=== PATIENT | male | born 1935 | race Caucasian/White ===

== ENCOUNTER → 2016-05-06 | Outpatient (CLI) | payer MEDICARE, OTHER ==
--- OUTSIDE RECORDS SUMMARY | 2016-05-06 10:59 | XMS REPORT | Continuity of Care Document ---
Author Author [facility] Organization [facility] Address Unknown Phone Unavailable Allergies Medications Problems Date Dx Coded Attending Type Code Diagnosis Diagnosed By 04/18/2014 Ot 285.9 04/18/2014 Ot 401.9 04/18/2014 Ot 714.0 04/18/2014 Ot V10.05 04/18/2014 Ot V12.51 04/18/2014 Ot V45.72 04/18/2014 Ot V67.2 04/18/2014 Ot 401.9 04/18/2014 Ot 714.0 04/18/2014 Ot V10.05 04/18/2014 Ot V12.51 04/18/2014 Ot V45.72 04/18/2014 Ot V58.69 04/18/2014 Ot V67.2 04/18/2014 Ot 285.9 04/18/2014 Ot 401.9 04/18/2014 Ot 714.0 04/18/2014 Ot V10.05 04/18/2014 Ot V12.51 04/18/2014 Ot V45.77 04/18/2014 Ot V58.69 04/18/2014 Ot V67.2 04/18/2014 Ot V87.41 04/18/2014 Ot 285.9 04/18/2014 Ot 401.9 04/18/2014 Ot 714.0 04/18/2014 Ot V10.05 04/18/2014 Ot V12.51 04/18/2014 Ot V45.77 04/18/2014 Ot V58.69 04/18/2014 Ot V67.2 04/18/2014 Ot V87.41 04/18/2014 Ot 285.9 04/18/2014 Ot 401.9 04/18/2014 Ot 714.0 04/18/2014 Ot V10.05 04/18/2014 Ot V12.51 04/18/2014 Ot V45.77 04/18/2014 Ot V58.69 04/18/2014 Ot V67.2 04/18/2014 Ot V87.41 04/18/2014 Ot 285.9 04/18/2014 Ot 401.9 04/18/2014 Ot 709.9 04/18/2014 Ot 714.0 04/18/2014 Ot V10.05 04/18/2014 Ot V12.51 04/18/2014 Ot V45.77 04/18/2014 Ot V58.69 04/18/2014 Ot V67.2 04/18/2014 Ot V87.41 04/18/2014 Ot 285.9 04/18/2014 Ot 401.9 04/18/2014 Ot 714.0 04/18/2014 Ot V10.05 04/18/2014 Ot V12.51 04/18/2014 Ot V45.77 04/18/2014 Ot V58.69 04/18/2014 Ot V67.2 04/18/2014 Ot V87.41 04/18/2014 Ot 285.9 04/18/2014 Ot 401.9 04/18/2014 Ot 714.0 04/18/2014 Ot V10.05 04/18/2014 Ot V12.51 04/18/2014 Ot V45.77 04/18/2014 Ot V58.69 04/18/2014 Ot V67.2 04/18/2014 Ot V87.41 04/18/2014 Ot 285.9 04/18/2014 Ot 401.9 04/18/2014 Ot 714.0 04/18/2014 Ot V10.05 04/18/2014 Ot V12.51 04/18/2014 Ot V45.77 04/18/2014 Ot V58.69 04/18/2014 Ot V67.2 04/18/2014 Ot V87.41 04/18/2014 Ot 401.9 04/18/2014 Ot 714.0 04/18/2014 Ot V10.05 04/18/2014 Ot V12.51 04/18/2014 Ot V58.69 04/18/2014 Ot V67.2 04/18/2014 Ot 285.9 04/18/2014 Ot 401.9 04/18/2014 Ot 714.0 04/18/2014 Ot V10.05 04/18/2014 Ot V12.51 04/18/2014 Ot V45.77 04/18/2014 Ot V58.69 04/18/2014 Ot V67.2 04/18/2014 Ot V87.41 05/17/2014 Ot 244.9 05/17/2014 Ot 285.9 05/17/2014 Ot 401.9 05/17/2014 Ot 714.0 05/17/2014 Ot V10.05 05/17/2014 Ot V12.51 05/17/2014 Ot V45.77 05/17/2014 Ot V58.69 05/17/2014 Ot V67.2 05/17/2014 Ot V87.41 05/23/2014 Ot 244.9 05/23/2014 Ot 285.9 05/23/2014 Ot 401.9 05/23/2014 Ot 714.0 05/23/2014 Ot V10.05 05/23/2014 Ot V12.51 05/23/2014 Ot V45.77 05/23/2014 Ot V58.69 05/23/2014 Ot V67.2 05/23/2014 Ot V87.41 06/06/2014 Ot 244.9 06/06/2014 Ot 285.9 06/06/2014 Ot 401.9 06/06/2014 Ot 714.0 06/06/2014 Ot V10.05 06/06/2014 Ot V12.51 06/06/2014 Ot V45.77 06/06/2014 Ot V58.69 06/06/2014 Ot V67.2 06/06/2014 Ot V87.41 11/22/2014 TORI HERNANDEZ, ESTRADADO Ot 244.9 11/22/2014 TORI HERNANDEZ, ESTRADADO Ot 285.9 11/22/2014 TORI HERNANDEZ, ESTRADADO Ot 401.9 11/22/2014 TORI HERNANDEZ, ESTRADADO Ot 714.0 11/22/2014 TORI HERNANDEZ, ESTRADA-DO Ot V10.05 11/22/2014 TORI HERNANDEZ, ESTRADA-DO Ot V12.51 11/22/2014 TORI HERNANDEZ, ESTRADADO Ot V58.69 11/22/2014 TORI HERNANDEZ, ESTRADA-DO Ot V67.2 05/28/2015 TORI HERNANDEZ, ESTRADA-DO Ot I10 05/28/2015 [facility]/28[facility] Z[facility] 05/28/2015 TORI HERNANDEZ, [facility] Ot Z85.038 05/28/2015 LIN VALLE MD, Ot Z86.718 11/07/2015 LIN VALLE MD, Ot C18.7 MALIGNANT NEOPLASM OF SIGMOID COLON 11/28/2015 LIN VALLE MD, Ot C18.7 MALIGNANT NEOPLASM OF SIGMOID COLON Procedures Results Encounters ACCT No. Visit Date/Time Discharge Status Pt. Type Provider Facility Loc./Unit Complaint [id number] 09/30/2014 22:15:19 09/30/2014 23: 59:59 [facility] Outpatient Samir Alvarado [id number] 09/30/2014 22:09:41 09/30/2014 23: 59:59 Samir Mccain
== END ==
LOC: PAR 10:55
PROVIDERS: ATTEND Internal Medicine Hematology & Oncology
DX: C18.7 Malignant neoplasm of sigmoid colon (principal)
CPT/HCPCS: 99213

== ENCOUNTER 2016-09-02 11:27 | Outpatient (RCR) | payer MEDICARE, OTHER ==
[2016-06-24 16:17] LABS: BASOPHILS % (AUTO) 0 % (0-10); EOSINOPHILS # (AUTO) 0.1 10^3/uL (0.0-0.3); EOSINOPHILS % (AUTO) 3 % (0-10); LYMPHOCYTES # (AUTO) 1.8 X 10^3 (1.0-4.0); LYMPHOCYTES % (AUTO) 36 % (12-44); MEAN CORPUSCULAR HGB CONC 33 G/DL (32-36); MEAN CORPUSCULAR VOLUME 96 FL (80-99); MEAN PLATELET VOLUME 9.8 FL (7.4-10.4); MONOCYTES # (AUTO) 0.6 X 10^3 (0.0-1.0); MONOCYTES % (AUTO) 11 % (0-12); NEUTROPHILS # (AUTO) 2.5 X 10^3 (1.8-7.8); NEUTROPHILS % (AUTO) 50 % (42-75); PLATELET COUNT 235 10^3/uL (130-400); RED BLOOD COUNT 3.94 10^6/uL (4.35-5.85); RED CELL DISTRIBUTION WIDTH 13.2 % (10.0-14.5); RETICULOCYTE % 1.14 % (0.50-2.40); WHITE BLOOD COUNT 5.1 10^3/uL (4.3-11.0)
[2016-06-24 16:22] LABS: MEAN CORPUSCULAR HEMOGLOBIN 31 PG (25-34)
[2016-06-24 17:08] LABS: BILIRUBIN,TOTAL 0.9 MG/DL (0.1-1.0); CALCIUM 8.9 MG/DL (8.5-10.1); CREATININE SERUM 1.54 MG/DL (0.60-1.30); POTASSIUM 4.4 MMOL/L (3.6-5.0); TOTAL PROTEIN 6.9 G/DL (6.4-8.2)
[2016-09-02 15:57] LABS: BASOPHILS % (AUTO) 0 % (0-10); EOSINOPHILS # (AUTO) 0.2 10^3/uL (0.0-0.3); EOSINOPHILS % (AUTO) 3 % (0-10); LYMPHOCYTES # (AUTO) 1.7 X 10^3 (1.0-4.0); LYMPHOCYTES % (AUTO) 34 % (12-44); MEAN CORPUSCULAR HEMOGLOBIN 32 PG (25-34); MEAN CORPUSCULAR HGB CONC 33 G/DL (32-36); MEAN CORPUSCULAR VOLUME 97 FL (80-99); MEAN PLATELET VOLUME 9.8 FL (7.4-10.4); MONOCYTES # (AUTO) 0.7 X 10^3 (0.0-1.0); MONOCYTES % (AUTO) 15 % (0-12); NEUTROPHILS # (AUTO) 2.4 X 10^3 (1.8-7.8); NEUTROPHILS % (AUTO) 48 % (42-75); PLATELET COUNT 244 10^3/uL (130-400); RED CELL DISTRIBUTION WIDTH 13.2 % (10.0-14.5)
[2016-09-02 16:55] LABS: ALBUMIN 3.9 GM/DL (3.2-4.5); BILIRUBIN,TOTAL 0.8 MG/DL (0.1-1.0); CALCIUM 8.6 MG/DL (8.5-10.1); CREATININE SERUM 1.43 MG/DL (0.60-1.30); POTASSIUM 4.5 MMOL/L (3.6-5.0); TOTAL PROTEIN 7.1 GM/DL (6.4-8.2)
== END 2016-09-22 | disposition home or self-care (01) ==
LOC: PAR 11:27
PROVIDERS: ATTEND Internal Medicine Hematology & Oncology
DX: Z08 Encounter for follow-up examination after completed treatment for malignant neoplasm (principal); Z85.038 Personal history of other malignant neoplasm of large intestine; I10 Essential (primary) hypertension; E03.9 Hypothyroidism, unspecified; M06.9 Rheumatoid arthritis, unspecified; Z86.718 Personal history of other venous thrombosis and embolism; Z79.899 Other long term (current) drug therapy
CPT/HCPCS: 36415; 80053; 82378; 82728; 83540; 85025; 85045; 99213

== ENCOUNTER → 2016-10-07 | Outpatient (CLI) | payer MEDICARE, OTHER | LOC: EDSTATUS 09-23 09:42 → PAR 11:33 | PROVIDERS: ATTEND Internal Medicine Hematology & Oncology | DX: Z08 Encounter for follow-up examination after completed treatment for malignant neoplasm (principal); Z85.038 Personal history of other malignant neoplasm of large intestine; I10 Essential (primary) hypertension; E03.9 Hypothyroidism, unspecified; M06.9 Rheumatoid arthritis, unspecified; Z86.718 Personal history of other venous thrombosis and embolism; Z79.899 Other long term (current) drug therapy | CPT/HCPCS: 99213 ==